=== PATIENT | female | born 1965 | race African-American/Black ===

== ENCOUNTER 2019-07-11 12:35 | Emergency (ER) | payer OTHER, MEDICARE ==
[~2019-07-11] VITALS: Ht 157.5 cm; Wt 65.0 kg
[~2019-07-11 12:35] MED LIST: ESTR1TAB17 PO; MAGN500C4 PO; MEDR2.5T PO; MORP15TA67 PO; OMEP20TA15 PO; OXYC-104 PO; PRAV20TA57 PO; PROG1 PO
[2019-07-11 14:10] VITALS: BP 137/78
== END 2019-07-11 14:10 | disposition home or self-care (01) ==
LOC: ER 12:35
DX: S63.601A Unspecified sprain of right thumb, initial encounter (principal); V49.49XA Driver injured in collision with other motor vehicles in traffic accident, initial encounter; Y93.89 Activity, other specified; Y92.410 Unspecified street and highway as the place of occurrence of the external cause; Z94.0 Kidney transplant status
CPT/HCPCS: 73130; 99283

== ENCOUNTER 2023-12-22 09:46 | Emergency (ER) | payer OTHER ==
[~2023-12-22] VITALS: Ht 160 cm; Wt 77.0 kg
[~2023-12-22 09:46] MED LIST changes: -PROG1 PO; +TACR1CAP2 PO
[2023-12-22 09:48] VITALS: O2SAT 100
[2023-12-22 11:05] VITALS: BP 142/86; PULSE 79; RESP 16; TEMP 98.2
== END 2023-12-22 11:23 | disposition home or self-care (01) ==
LOC: ER 09:46
DX: M54.50 Low back pain, unspecified (principal); E11.9 Type 2 diabetes mellitus without complications; I10 Essential (primary) hypertension; Z79.899 Other long term (current) drug therapy; Z86.73 Personal history of transient ischemic attack (TIA), and cerebral infarction without residual deficits; V49.49XA Driver injured in collision with other motor vehicles in traffic accident, initial encounter; Y93.89 Activity, other specified; Y92.89 Other specified places as the place of occurrence of the external cause; Y99.8 Other external cause status
CPT/HCPCS: 72100; 99283

== ENCOUNTER 2024-08-23 11:12 | Emergency (ER) | payer OTHER ==
[~2024-08-23] VITALS: Ht 154.9 cm; Wt 64.0 kg
[2024-08-23 11:17] VITALS: O2SAT 100
[2024-08-23] MEDS ORDERED: HYDROMORPHONE HCL/PF 2MG/ML INJ IV ONE ×2 (13:15→16:45)
[2024-08-23] MEDS ORDERED: MORPHINE SULFATE 4 MG/ML INJ (FOR IV/IM USE) IV STA (13:15)
[2024-08-23] MEDS ORDERED: ONDANSETRON HCL 4MG/2ML INJ IV STA (13:15)
[2024-08-23] MEDS ORDERED: KETOROLAC 30MG/ML VIAL IV STA (13:15)
[2024-08-23] MEDS: MORPHINE SULFATE 4 MG/ML INJ (FOR IV/IM USE) IV NR (15:30)
[2024-08-23 15:39] LABS: CLARITY URINE CLEAR (CLEAR); COLOR URINE YELLOW (YELLOW); GLUCOSE URINE TRACE (NEGATIVE); KETONES URINE NEGATIVE (NEGATIVE); LEUKOCYTE ESTERASE URINE NEGATIVE (NEGATIVE); NITRITE URINE NEGATIVE (NEGATIVE); OCCULT BLOOD URINE NEGATIVE (NEGATIVE); PH URINE 7.5 (4.5-8.0); PROTEIN URINE TRACE (NEGATIVE); SPECIFIC GRAVITY URINE 1.008 (1.005-1.030); UROBILINOGEN URINE 0.2 E.U./dL (0.2-1.0)
[2024-08-23] MEDS: HYDROMORPHONE HCL/PF 1MG/ML INJ IV NR ×2 (15:54→17:56)
[2024-08-23 15:56] LABS: *AMPHETAMINES SCREEN URINE NEGATIVE (NEGATIVE); *BENZODIAZEPINES SCREEN URINE NEGATIVE (NEGATIVE)
[2024-08-23 15:57] LABS: *BARBITURATES SCREEN URINE NEGATIVE (NEGATIVE); *COCAINE SCREEN URINE NEGATIVE (NEGATIVE); CANNABINOID URINE SCREEN NEGATIVE (NEGATIVE); ECSTASY MDMA SCREEN URINE NEGATIVE (NEGATIVE); METHADONE URINE SCREEN NEGATIVE (NEGATIVE); OPIATES URINE SCREEN NEGATIVE (NEGATIVE); PHENCYCLIDINE URINE SCREEN NEGATIVE (NEGATIVE)
[2024-08-23] MEDS: ONDANSETRON HCL 4MG/2ML INJ IV NR (16:30)
[2024-08-23 16:53] LABS: BACTERIA URINE TRACE; RBC URINE NONE SEEN /hpf (0-2); SQUAMOUS EPITHELIAL CELL URINE FEW /lpf (RARE/1+); WBC URINE 0-2 /hpf (0-2)
[2024-08-23] MEDS: KETOROLAC 30MG/ML VIAL IV NR (17:00)
[2024-08-23 17:19] LABS: BASOPHILS % 0.8 % (0.0-2.0); DIFFERENTIAL COMMENT 0; EOSINOPHILS % 0.5 % (0.0-5.0); HEMATOCRIT. 36.1 % (36.0-48.0); HEMOGLOBIN. 10.8 g/dL (12.0-16.0); LYMPHOCYTES % 21.2 % (20.0-50.0); MEAN CORPUSCULAR HEMOGLOBIN 23.1 pg (28.0-32.0); MEAN CORPUSCULAR HGB CONC 29.9 g/dL (31.0-37.0); MEAN CORPUSCULAR VOLUME 77.4 fL (81.0-99.0); MONOCYTES % 11.2 % (2.0-8.0); NEUTROPHILS % 66.3 % (40.0-76.0); PLATELET 186 x1000/uL (130-400); RED BLOOD CELL COUNT 4.67 mill/uL (4.2-5.4); RED CELL DISTRIBUTION WIDTH 16.3 % (11.6-14.6); WHITE BLOOD COUNT 12.8 x1000/uL (4.5-11.0)
[2024-08-23 17:25] LABS: POTASSIUM 4.5 mEq/L (3.5-5.1)
[2024-08-23 17:26] LABS: CALCIUM 10.4 mg/dL (8.7-10.4)
[2024-08-23 17:31] LABS: CREATININE 4.4 mg/dL (0.6-1.0)
[2024-08-23 17:41] VITALS: BP 151/72; PULSE 76; TEMP 37.39188; O2SAT 97
[2024-08-23 17:56] VITALS: RESP 22
[2024-08-23] MEDS: ACETAMINOPHEN 325MG TABLET PO ONE (17:56)
[2024-08-23] MEDS ORDERED: ACETAMINOPHEN 325MG TABLET PO ONE (18:00)
== END 2024-08-23 18:08 | disposition short-term general hospital (02) ==
LOC: ER 11:36 → EDBEDREQ 13:53 → CANBEDREQ 16:00 → ER 18:08
DX: G89.29 Other chronic pain (principal); M54.50 Low back pain, unspecified; Z86.73 Personal history of transient ischemic attack (TIA), and cerebral infarction without residual deficits; Z88.0 Allergy status to penicillin; Z79.899 Other long term (current) drug therapy; Z94.0 Kidney transplant status
CPT/HCPCS: 80305; 80048; 81003; 85025; 36415; 71045; 72131; 96374; 96375; 96376; 99285; J1885; J2405; J1171; J2270; Z7610